=== PATIENT | male | born 1960 | race African-American/Black ===

== ENCOUNTER 2021-04-03 15:29 | Emergency (ER) | payer OTHER ==
[~2021-04-03] VITALS: Ht 175.3 cm; Wt 87.0 kg
[2021-04-03 15:31] VITALS: BP 160/84
[2021-04-03] MEDS ORDERED: HYDROCODONE/ACETAMINOPHEN 5/325MG TABLET PO ONE (16:15)
[2021-04-03] MEDS ORDERED: NAP5EC MT (18:09)
[2021-04-03] MEDS ORDERED: LIDO1ADH5 TP (18:09)
[2021-04-03] MEDS ORDERED: METH-653 MT (18:09)
== END 2021-04-03 19:01 | disposition home or self-care (01) ==
LOC: ER 15:29
DX: S16.1XXA Strain of muscle, fascia and tendon at neck level, initial encounter (principal); M25.532 Pain in left wrist; I10 Essential (primary) hypertension; F14.10 Cocaine abuse, uncomplicated; F15.10 Other stimulant abuse, uncomplicated; V43.52XA Car driver injured in collision with other type car in traffic accident, initial encounter; Y93.89 Activity, other specified; Y92.488 Other paved roadways as the place of occurrence of the external cause
CPT/HCPCS: 73110; 99283